=== PATIENT | female | born 2005 | race African-American/Black ===

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

== ENCOUNTER 2024-10-11 16:26 | Emergency (ER) | payer OTHER ==
[2024-10-11 16:33] VITALS: BP 106/84; PULSE 95; RESP 20; TEMP 99; BMI 25.7
== END 2024-10-11 18:09 | disposition home or self-care (01) ==
LOC: JERFT 16:26
DX: B37.31 Acute candidiasis of vulva and vagina (principal)
CPT/HCPCS: 87070; 87077; 87205; 99283-25